=== PATIENT | male | born 1960 | race Two or more races ===

== ENCOUNTER 2020-08-30 09:33 | Emergency (ER) | payer SELFPAY ==
[~2020-08-30] VITALS: Ht 167.6 cm; Wt 78.5 kg
--- NOTE | 2020-08-30 09:33 | NUR ---
PT [id number] STREETS C/O EPIGAASTRIC PAIN N/V STARTED LAST NIGHT. PT IS AAOX4, NOT IN RESPIRATORY DISTRESS, V/S STABLE, KEPT RESTED AND COMFORTABLE. WILL CONTINUE TO MONITOR.
--- NOTE | 2020-08-30 09:44 | NUR ---
SEEN AND EXAMINED BY
[2020-08-30] MEDS ORDERED: PANTOPRAZOLE 40 MG VIAL ONE (09:45)
[2020-08-30] MEDS ORDERED: LIDOCAINE VISCOUS 2% UD 15 ML UDC ONE (09:45)
[2020-08-30] MEDS ORDERED: MAG HYDROX/AL HYDROX/SIMETH 30 ML UDC ONE (09:45)
[2020-08-30] MEDS ORDERED: ONDANSETRON HCL/PF 4 MG/2 ML VIAL ONE (09:46)
--- NOTE | 2020-08-30 09:50 | NUR ---
IV LINE ESTABLSIHED [id number] R AC.
[2020-08-30] MEDS ORDERED: FAMO-131 PO (09:58)
[2020-08-30] MEDS ORDERED: ONDA4TAB5 PO (09:58)
[2020-08-30] MEDS ORDERED: OMEP20CA15 PO (09:58)
[2020-08-30] MEDS ORDERED: MAG HYDROX/AL HYDROX/SIMETH 30 ML UDC PO ONE (10:00)
[2020-08-30] MEDS ORDERED: PANTOPRAZOLE 40 MG VIAL IV ONE (10:00)
[2020-08-30] MEDS ORDERED: IV NS 0.9% 1,000 ML BAG IV ONE (10:00)
[2020-08-30] MEDS ORDERED: LIDOCAINE VISCOUS 2% UD 15 ML UDC MM ONE (10:00)
[2020-08-30] MEDS ORDERED: ONDANSETRON HCL/PF 4 MG/2 ML VIAL IVP ONE (10:00)
--- NOTE | 2020-08-30 11:06 | NUR ---
IV removed. Catheter intact and site benign. Pressure and 4x4 applied to site. No bleeding noted.
--- NOTE | 2020-08-30 11:07 | NUR ---
Patient given written and verbal discharge instructions. Patient verbalizes understanding of instructions. Patient is ambulatory with steady gait. Refuses offer of detention placement. Patient given list of available shelters in surrounding area.
[2020-08-30 11:08] VITALS: BP 127/73
== END 2020-08-30 11:21 | disposition home or self-care (01) ==
LOC: ER 09:37
DX: R10.13 Epigastric pain (principal); R11.2 Nausea with vomiting, unspecified; I10 Essential (primary) hypertension; R00.0 Tachycardia, unspecified; Z87.11 Personal history of peptic ulcer disease; Z88.5 Allergy status to narcotic agent; Z79.899 Other long term (current) drug therapy
CPT/HCPCS: 71045; 96361; 96374; 96375; 99284; C9113; J2405; J7030

== ENCOUNTER 2021-05-10 01:14 | Emergency (ER) | payer MEDICAID ==
[~2021-05-10] VITALS: Ht 167.6 cm; Wt 74.8 kg
[~2021-05-10 01:14] MED LIST: FAMO-131 PO; OMEP20CA15 PO; ONDA4TAB5 PO
[2021-05-10] MEDS ORDERED: MAG HYDROX/AL HYDROX/SIMETH 30 ML UDC PO ONE (01:30)
[2021-05-10] MEDS ORDERED: LIDOCAINE VISCOUS 2% UD 15 ML UDC MM ONE (01:30)
--- NOTE | 2021-05-10 01:31 | NUR ---
PRESENTED TO THE ER FOR C/O EPIGASTRIC PAIN, N/V X 2 DAYS. PT W HX OF PEPTIC ULCER DIS AND ADMITTED ON DRINKING ALCOHOL. DENIED SMOKING. PT WAS PLACED IN BED 11 ER, ON MONITOR, VSS. AWAITING FOR MD'S EVAL
--- NOTE | 2021-05-10 01:33 | NUR ---
PT SEEN BY DR. LAW CARPENTER
[2021-05-10] MEDS ORDERED: LIDOCAINE VISCOUS 2% UD 15 ML UDC ONE (01:39)
[2021-05-10] MEDS ORDERED: MAG HYDROX/AL HYDROX/SIMETH 30 ML UDC ONE (01:39)
--- NOTE | 2021-05-10 01:39 | NUR ---
[employer] DESK TEAM MEMBER AT PT'S BEDSIDE
[2021-05-10 01:48] LABS: BASOPHILS # (AUTO) 0.1 K/uL (0.0-0.2); BASOPHILS % (AUTO) 1.9 % (0.0-2.0); EOSINOPHILS % (AUTO) 2.3 % (0.0-6.0); HEMATOCRIT 26 % (39-51); HEMOGLOBIN 8.4 g/dL (13.5-17.5); LYMPHOCYTES # (AUTO) 0.8 K/uL (0.8-4.8); LYMPHOCYTES % (AUTO) 23.2 % (20.0-44.0); MEAN CORPUSCULAR HGB CONC 32 g/dl (31.0-36.0); MEAN CORPUSCULAR VOLUME 79 fL (80-96); MONOCYTES # (AUTO) 0.5 K/uL (0.1-1.30); MONOCYTES % (AUTO) 12.9 % (2.0-12.0); NEUTROPHILS # (AUTO) 2.2 K/uL (1.8-8.9); NEUTROPHILS % (AUTO) 59.7 % (43.0-81.0); PLATELET COUNT (AUTO) 222 K/uL (150-450); RED BLOOD CELL COUNT(AUTO) 3.29 MIL/uL (4.5-6.0); WHITE BLOOD COUNT (AUTO) 3.6 K/uL (4.3-11.0)
[2021-05-10 02:05] LABS: CALCIUM, SERUM 8.5 mg/dL (8.5-10.1); CREATININE 0.8 mg/dL (0.6-1.3); POTASSIUM 3.4 mmol/L (3.5-5.1)
[2021-05-10 02:11] LABS: ALBUMIN 3.2 g/dL (3.4-5.0); BILIRUBIN,DIRECT 0.1 mg/dL (0.0-0.2); BILIRUBIN,TOTAL 0.1 mg/dL (0.2-1.0); TOTAL PROTEIN, SERUM 7.3 g/dL (6.4-8.2)
[2021-05-10] MEDS ORDERED: OMEP40CA21 PO (02:22)
--- NOTE | 2021-05-10 02:38 | NUR ---
Patient discharged to home in stable condition. Written and verbal after care instructions given. Patient verbalizes understanding of instruction. PT ambulatory with a steady gait
[2021-05-10 02:39] VITALS: BP 124/68
== END 2021-05-10 02:48 | disposition home or self-care (01) ==
LOC: ER 01:15
DX: R10.13 Epigastric pain (principal); K27.9 Peptic ulcer, site unspecified, unspecified as acute or chronic, without hemorrhage or perforation; I10 Essential (primary) hypertension; Z88.6 Allergy status to analgesic agent; Z59.00 Homelessness unspecified; Z79.899 Other long term (current) drug therapy
CPT/HCPCS: 36415; 80048-TC; 80076-TC; 83690-TC; 85025-TC